=== PATIENT | male | born 1950 | race Caucasian/White ===

== ENCOUNTER 2024-10-01 10:23 | Outpatient (AMB) | payer MEDICARE, SELFPAY ==
--- NOTE | 2024-10-01 10:24 | A.OFFVIS_ITS ---
Vital Signs 10/01/24 10:32 Weight 274 lb BP 141/78 H Blood Pressure Location Rt brachial Position Sitting Pulse 84 Pulse Source Pulse Oximeter Pulse Oximetry (%) 97 Oxygen Delivery Method Room Air Intake Visit Reasons: Cough/Shortness of Breath Allergies No Known Allergies Allergy (Verified 10/01/24 10:33) Medication List - Last Reconciled 10/01/24 by Darshana Hernandez, SALES SERVICE MANAGER amlodipine 10 mg PO DAILY aspirin 81 mg PO DAILY doxazosin 4 mg PO DAILY losartan-hydrochlorothiazide 100-25 mg 1 tab PO DAILY HPI HPI Cough/Shortness of Breath: Details: Chu is a pleasant 74 year old male, never smoker, with underlying HTN, adenocarcinoma of prostate s/p prostatectomy 2005, and 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 He was referred by PCP for pulmonary evaluation. He reports persistent productive cough with associated dyspnea and wheezing that started in June, after ritika Influenza A. Symptoms persisted and was treated in August with azithromycin and prednisone on 08/11. He reports complete resolution in cough since then however dyspnea continues with moderate exertion. He was given an albuterol MDI which he has used infrequently as he does not benefit from use. He denies h/o recurrent respiratory infections. He denies h/o asthma/COPD. He reports history of second hand smoke exposure and has been heating his house with wood for 40+ years. 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 Of note, he also reports witnessed apneas and daytime fatigue, no h/o COLBY. Denies prior sleep study. He reports significant family history of CAD and reports sister, smoker, with h/o COPD. He recently had echo performed at [facility], records not available today. He does report h/o BLE edema, trialed lasix for 5 days with minimal improvement. He denies evaluation from cardiology. Patient also underwent chest CT in August 2024 which revealed calcifications of coronary arteries as well as 3 mm pulmonary nodule of LLL. Review of Systems Const Denies chills, Denies excessive sweating, Denies fever(s), Denies headache(s) and Denies night sweats Eyes Denies dry eyes, Denies irritation and Denies itchy eyes ENT Reports Normal hearing present, Denies headache(s), Denies nasal congestion, Denies nasal discharge, Denies post nasal drip and Denies sore throat Card Denies chest pain, Denies chest pain at rest, Denies chest pain with activity, Denies claudication, Reports dyspnea on exertion, Denies orthopnea and Reports p aroxysmal nocturnal dyspnea Resp Denies change in phlegm color, Denies chest congestion, Denies cough, Denies hemoptysis, Denies excessive phlegm production, Denies pain on inspiration, Denies pain with cough, Reports dyspnea on exertion, Denies stridor and Denies wheezing Musc Denies myalgias Neuro Reports Normal hearing present and Denies headache(s) Endo Denies excessive sweating Mandeep/Lymph Denies lymphadenopathy Aller/Immun Denies itchy eyes, Denies seasonal rhinorrhea and Denies wheezing Physical Exam Vital Signs: Last Vital Signs Pulse 84 10/01/24 10:32 BP 141/78 H 10/01/24 10:32 Pulse Ox 97 10/01/24 10:32 Oxygen Delivery Method Room Air 10/01/24 10:32 Const General: cooperative, healthy appearing, comfortable, no acute distress, well developed and alert Nutritional Appearance: obese Orientation/consciousness: patient oriented x3 Limitations: no limitations HEENT Head: Yes normal to inspection, Yes normocephalic and Yes atraumatic Ears: hearing grossly normal bilaterally and external ears normal Eyes General: appearance normal, both eyes and all related structures Eyelids: Yes eyelids normal Sclerae: sclerae normal EOM: EOMs intact bilaterally Neck Neck: Yes normal visual inspection and Yes no lymphadenopathy Lymphatic: no lymphadenopathy noted Chest Chest palpation & inspection: normal inspection of the chest Resp Effort & Inspection: normal respiratory effort, able to speak in complete sentences, no audible wheezes, no cough, no stridor, not tachypneic, no tripod positioning and no use of accessory muscles Auscultation: clear to auscultation bilaterally Cardio Jugular venous distension: no JVD Rate: regular rate Rhythm: regular rhythm Skin Other: warm, dry General skin exam: no rashes or lesions noted Neuro General: patient oriented x3 Cranial nerves: Yes Normal hearing present Cognition (Neuro): normal cognition Gait exam (Neuro): Normal gait present Extrem Other: 1+ pitting edema BLE Psych Appearance: grossly normal and well kempt Speech and movement: Normal speech and movement present and Clear speech present Affect: normal affect Attitude: cooperative Thought process: Normal thought process present Thought content: Normal thought content present Insight: Good insight present (Psych) Judgement: Good judgement present (Psych) Assessment & Plan Assessment & Plan (1) Dyspnea on exertion: Code(s): R06.09 - Other forms of dyspnea Category: Medical (2) Witnessed episode of apnea: Code(s): R06.81 - Apnea, not elsewhere classified Category: Medical (3) Pulmonary nodule: Code(s): R91.1 - Solitary pulmonary nodule Category: Medical Plan Cuh's symptoms may be multifactorial with pulmonary and cardiac contribution. Will send for PFT to assess. Will attempt to obtain echo from [facility] to assess for diastolic dysfunction. Patient reports symptoms suggestive of COLBY, will send for home sleep study. Patient with Chest CT which revealed 3mm pulmonary nodule of LLL, will repeat in one year to assess stability. All questions were answered and patient is in agreement of plan. Will follow up to review results or sooner if needed. Orders: Orders PFT pulmonary function test Today R06.09 - Other forms of dyspnea RT home sleep study Today R06.81 - Apnea, not elsewhere classified, R40.0 - Somnolence CT chest wo IV con 11 Months R91.1 - Solitary pulmonary nodule Coding Level of Care Code New Pt Level 4 (47753) Diagnoses Dyspnea on exertion R06.09 Witnessed episode of apnea R06.81 Pulmonary nodule R91.1
[2024-10-01 10:32] VITALS: BP 141/78; PULSE 84; O2SAT 97
--- OUTSIDE RECORDS SUMMARY | 2024-10-01 12:09 | XMS_ITS | Encounter Summary ---
Author Organization [facility] Address [address] [facility] [address] [place] [address] Phone Care Team Providers Care Administrative Aide Name Role Phone Erlin Monk MD Primary Care Provider [phone] Encounter Details Date Type Department Care Team (Late st Contact Info) Description 06/22/2023 Procedure Pass OR Admitting Dept - Virtual Department [address] [place] [address] Social History Tobacco Use Types Packs/Day Years Used Date Smoking Tobacco: Never Smokeless Tobacco: Never Alcohol Use Standard Drinks/Week Comments Yes 0 (1 standard drink = 0.6 oz pur e alcohol) Education Answer Date Recorded Are you interested in more education? Not on angélica e 04/17/2023 Are you concerned about learning? Not on file 04/17/2023 No 04/17/2023 No 04/17/2023 Digital Access Answer Date Recorded No 04/17/2023 No 04/17/2023 Reliable internet access at home? Not on file 04/17/2023 Device with a working camera? Not on file Sex and Gender Information Value Date Recorded Sex Assigned at Not on file Gender Identity Not on file Sexual Orientation Not on file documented as of this encounter Plan of Treatment Not on file documented as of this encounter Visit Diagnoses Not on filedocumented in this encounter Care Teams Administrative Aide Relationship Specialty Start Date End Date Erlin Monk MD [address] [facility] [address] [place] [address] PCP - General Internal Medicine 04/17/23 documented as of this encounter Additional Source Comments The information contained in this document represents components of the legal health record. It is not the complete legal health record.[facility]
--- OUTSIDE RECORDS SUMMARY | 2024-10-01 12:09 | XMS_ITS | Clinical Summary ---
Author Organization [facility] Address [address] [place] [address] Phone Care Team Providers Care Skiving Machine Operator Name Role Phone Erlin Monk MD Primary Care Provider [phone] Allergies No known active allergies Medications Medication Sig Dispensed Refills Start Date End Date Status amLODIPine (NORVASC) 10 MG tablet 02/03/2023 Active doxazosin (CARDURA) 4 MG tablet Take 1 tablet by mouth every morning. 02/03/2023 Active losartan-hydroCHLOROthi azide (HYZAAR) 100-25 mg per tablet Take 1 tablet by mouth every morning. 03/04/2023 Active aspirin 81 mg chewable tablet Take 81 mg by mouth daily. Active omega 3-zbb-gtc-fish oil 1,000 mg (120 mg-180 mg) Cap Take 1 capsule by mouth daily. Active therapeutic multivitamin tablet Take 1 tablet by mouth daily. Active cholecalciferol (VITAMIN D3) 25 MCG (1,000 unit) tablet Take 1,000 Units by mouth daily. Active Active Problems Problem Noted Date Diagnosed Date Squamous cell carcinoma of nose 04/23/2023 Aspirin long-term use 04/23/2023 Family History Relation Status Comments Father Mother Social History Tobacco Use Types Packs/Day Years Used Date Smoking Tobacco: Never Smokeless Tobacco: Never Tobacco Cessation:Counseling Given: Not Answered Alcohol Use Standard Drinks/Week Comments Yes 0 [...] on file Sexual Orientation Not on file Last Filed Vital Signs Vital Sign Reading Time Taken Comments Blood Pressure 143/92 06/22/2023 10:36 AM EST Pulse 72 06/22/2023 10:36 AM EST Temperature - - Respiratory Rate - - Oxygen Saturation 97% 06/22/2023 10:36 AM EST Inhaled Oxygen Concentration - - Weight 121.1 kg (267 lb) 04/23/2023 9:45 AM EDT Height 175.3 cm (5' 9 ) 04/23/2023 9:45 AM EDT Body Mass Index 39.43 04/23/2023 9:45 AM EDT Plan of Treatment Health Maintenance Due Date Last Done Comments Adult Td,Tdap Booster 1950 CREATININE LEVEL 1950 LIPID PANEL 1950 POTASSIUM LEVEL 1950 DEPRESSION SCREENING 1962 HEPATITIS B SCREENING 1968 HEPATITIS C SCREENING 1968 COLOGUARD 1995 COLONOSCOPY 1995 COLORECTAL CANCER SCREENING 1995 FIT TEST 1995 FOBT 1995 SIGMOIDOSCOPY 1995 VIRTUAL COLONOSCOPY 1995 PNEUMOCOCCAL VACCINES (50+ years) (1 of 1 - PCV) 2000 INFLUENZA VACCINE (#1) 2024 3, 03/29/2020 COVID-19 VACCINE (3 - 2023-2 5 season) 2024 10/04/2020, 09/13/2020 RSV VACCINE (1 - 1-dose 75+ series) 2025 ZOSTER VACCINES Completed 10/24/2020, 08/24/2020 SMOKING STATUS SCREENING (On ce After 26 Yrs) Completed 04/23/2023 HEPATITIS A VACCINES Aged Out No long er eligible based on patient's age to complete this topic HEPATITIS B VACCINES Aged Out No long er eligible based on patient's age to complete this topic HIB VACCINES Aged Out No longer eligi ble based on patient's age to complete this topic MENINGOCOCCAL VACCINES (ACWY) Aged Out No longer eligible based on patient's age to complete this topic Medical Devices Not on file Care Teams Skiving Machine Operator Relationship Specialty Start Date End Date Erlin Monk MD [address] [facility] [address] [place] [address] PCP - General Internal Medicine 04/17/23 Additional Source Comments The information contained in this document represents components of the legal health record. It is not the complete legal health record.[facility]
--- OUTSIDE RECORDS SUMMARY | 2024-10-01 12:09 | XMS_ITS | Encounter Summary ---
Author Organization [facility] Address [address] [employer] [facility] [address] [place] [address] Phone Care Team Providers Care Roll Or Tape Edge Machine Operator Name Role Phone Erlin Monk MD Primary Care Provider [phone] Encounter Details Date Type Department Care Team (Late st Contact Info) Description 08/03/2023 Procedure Pass OR Admitting Dept - Virtual Department [address] [place] [address] Social History Tobacco Use Types Packs/Day Years [...] on filedocumented in this encounter Care Teams Roll Or Tape Edge Machine Operator Relationship Specialty Start Date End Date Erlin Monk MD [address] [facility] [address] [place] [address] PCP - General Internal Medicine 04/17/23 documented as of this encounter Additional Source Comments The information contained in this document represents components of the legal health record. It is not the complete legal health record.[facility]
--- OUTSIDE RECORDS SUMMARY | 2024-10-01 12:09 | XMS_ITS | Clinical Summary ---
Author Organization [address] [facility] Address [address] [place] [address] Phone Care Team Providers Care Assistant Distribution Manager Name Role Phone Bayron Fulton Primary Care Provider [phone] Encounters Date Type Department Care Team Description 09/03/2024 7:30 AM EST Ancillary Procedure [facility] [address] [facility] [address] [place] [address] SOB (shortness of breath) from Last 3 Months Social History Tobacco Use Types Packs/Day Years Used Date Smoking Tobacco: Never Assessed Sex and Gender Information Value Date Recorded Sex Assigned at Not on file Legal Sex Male 9:05 AM EST Gender Identity Not on file Sexual Orientation Not on file Last Filed Vital Signs Vital Sign Reading Time Taken Comments Blood Pressure 144/72 09/03/2024 8:12 AM EST Pulse - - Temperature - - Respiratory Rate - - Oxygen Saturation - - Inhaled Oxygen Concentration - - Weight 126 kg (277 lb) 09/03/2024 8:12 AM EST Height 177.8 cm (5' 10 ) 09/03/2024 8:12 AM EST Body Mass Index 39.75 09/03/2024 8:12 AM EST Plan of Treatment Health Maintenance Due Date Last Done Comments DTaP,Tdap,and Td Vaccines (1 - Tdap) 1969 Pneumococcal Vaccine: 50+ Ye ars (1 of 1 - PCV) 2000 Zoster Vaccines (1 of 2) 2000 COVID-19 Vaccine (2023-2 5 season) 2024 Influenza Vaccine (#1) 2024 Abdominal Aortic Aneurysm (A AA) Screen 09/02/2024 Cholesterol Screening (Lipid Panel) 09/02/2024 Colorectal Cancer Screening: Colonoscopy 09/02/2024 Depression Screening 09/02/2024 Falls Risk Assessment 09/02/2024 Hepatitis C Screening 09/02/2024 Medicare Annual Wellness Visit 09/02/2024 Social Influencers of Health Screening 09/02/2024 RSV Immunization Adult Patie nts (1 - 1-dose 75+ series) 2025 HIB Vaccines Aged Out No longer eligi ble based on patient's age to complete this topic HPV Vaccines Aged Out No longer eligi ble based on patient's age to complete this topic Hepatitis A Vaccines Aged Out No long er eligible based on patient's age to complete this topic Hepatitis B Vaccines Aged Out No long er eligible based on patient's age to complete this topic IPV Vaccines Aged Out No longer eligi ble based on patient's age to complete this topic MMR Vaccines Aged Out No longer eligi ble based on patient's age to complete this topic Meningococcal ACWY Vaccine Aged Out N o longer eligible based on patient's age to complete this topic Meningococcal B Vacine Aged Out No lo nger eligible based on patient's age to complete this topic RSV Immunization Patients Un vangie 20 months Aged Out No longer eligible b ased on patient's age to complete this topic Varicella Vaccines Aged Out No longer eligible based on patient's age to complete this topic Procedures Procedure Name Priority Date/Time Associated Diagnosis Comments TRANSTHORACIC ECHOCARDIOGRAM (TTE) COMPLETE STAT 09/03/2024 8:12 AM EST SOB (shortness of breath) from Last 3 Months Results * (ABNORMAL) TRANSTHORACIC ECHOCARDIOGRAM (TTE) COMPLETE (09/03/2024 8:12 AM EST) Left Atrium Minor Harwick 6.8 cm CV PACS Left Atrium Major Harwick 5.9 cm CV PACS LA Area Sys (A2C) 29 cm2 CV PACS LA Area Sys (A4C) 23 cm2 CV PACS LA Volume (BP) 92 mL CV PACS RA Area 13.8 cm2 CV PACS RA 2D Volume 27 mL CV PACS Aortic Sinus Valsalva 4.8 cm CV PACS Ascending Aorta 3.9 cm CV PACS IVSD 1.2(A) 0.6 - 1.0 cm CV PACS LVIDD 4.7 4.2 - 5.8 cm CV PACS LVIDS 3.3 2.5 - 4.0 cm CV PACS LVOT Diameter 2.5 cm CV PACS LVOT Mean Jarett 0.8 m/s CV PACS LVOT Mean Grad 2 mmHg CV PACS LVOT Peak VTI 25.1 cm CV PACS LVOT Peak Jarett 1.3 m/s CV PACS LVOT Peak Gradient 7 mmHg CV PACS LVPWD 1.2(A) 0.6 - 1.0 cm CV PACS MV E' Tissue Velocity Lateral 5 cm/s CV PACS MV E' Tissue Velocity Septal 5 cm/s CV PACS LVOT Area 4.9 cm2 CV PACS LVOT Stroke Volume 123 mL CV PACS MV Deceleration Ringgold 3.2 m/s2 CV PACS E Wave Deceleration Time 232 119 - 242 ms CV PACS MV PHT 67 ms CV PACS MV Peak A Jarett 1.00 m/s CV PACS MV Peak E Jarett 0.80 m/s CV PACS MV Area PHT 3.2 cm2 CV PACS PV Acceleration Time 85 ms CV PACS RV Diastolic Basal Dimension 4.9(A) 2.5 - 4.1 cm CV PACS TAPSE 29 mm CV PACS E/E' Ratio Septal 16 CV PACS E/E' Ratio Averaged 16 CV PACS Relative Wall Thickness ratio 0.49(A) 0.24 - 0.42 CV PACS FS 30 % CV PACS LV Mass 2D 207(A) 96 - 200 g CV PACS LVOT flow 393 mL/s CV PACS E/A Ratio 0.8 0.8 - 2.0 CV PACS E/E' Ratio Lateral 16 CV PACS BSA 2.49 m2 CV PACS LA Volume Index (BP) 36 mL/m2 CV PACS LVIDD Index 1.96 cm/m2 CV PACS LVIDS Index 1.38 cm/m2 CV PACS LV Mass Index 2D 88 50 - 102 g/m2 CV PACS LVOT Stroke Index 0 mL/m2 CV PACS RA 2D Volume Index 11(A) 18 - 32 mL/m2 CV PACS Ascending Aorta Index 1.63 cm/m2 CV PACS RA Major Harwick 5.8 cm CV PACS RA Major Harwick Index 2.4 2.1 - 2.7 cm/m2 CV PACS AV Velocity Ratio 0.82 CV PACS Ao VTI 28.7 cm CV PACS AV Mean Gradient 6 mmHg CV PACS AV Peak Gradient 10 mmHg CV PACS LVOT:AV VTI Index 0.88 CV PACS AV Area 2D 4.0 cm2 CV PACS DELFINO Index (2D) 1.67 cm2/m2 CV PACS AV Area Continuity Equation 4.3 cm2 CV PACS DELFINO Index (VTI) 1.79 cm2/m2 CV PACS AV Area Index 1.6 CV PACS Est. RA Pressure 3 mmHg CV PACS Anatomical Region Laterality Modality Ultrasound Narrative 09/03/2024 2:59 PM EST ?Left ventricle cavity size is normal. ??There is mild, concentric left ventricular hypertrophy. ??There is normal left ventricular regional wall motion. ??Left ventricular systolic function is in the normal range with an ejection fraction of 55-60%. ?There is normal right ventricular size and systolic function. ?There is no hemodynamically significant valve disease noted. ??Minor valvular abnormalities as below. ?The Sinus of Valsalva is dilated (4.8 cm). The ascending aorta is mildly dilated (3.9 cm). ?There is mild left atrial enlargement. Normal biventricular systolic function. ??Dilated aortic root and ascending aorta as above. ??There are no prior echocardiograms in our system for comparison. ??Of note, patient was having frequent isolated PVCs throughout the study. Left Ventricle Left ventricle cavity size is normal. There is mild hypertrophy. Systolic function is normal with an ejection fraction of 55-60%. There are no regional LV wall motion abnormalities. Indeterminate diastolic function due to more than mild mitral annular calcification. Left atrial pressure is inconclusive. Right Ventricle Right ventricle cavity appears normal. Normal TAPSE (> 17 mm). Left Atrium Left atrium cavity is mildly dilated. Right Atrium Right atrium cavity is normal. IVC/SVC RA pressures is estimated to be 3 mmHg (IVC diameter <21 mm and decreases >50% during inspiration). Mitral Valve The leaflets are mildly thickened and exhibit normal excursion. There is moderate annular calcification. There is no regurgitation or stenosis. Tricuspid Valve The leaflets exhibit normal excursion. There is no regurgitation or stenosis. Cannot assess RVSP. Aortic Valve The aortic valve is trileaflet. The leaflets are mildly thickened. There is mild regurgitation. There is no evidence of aortic valve stenosis. Pulmonic Valve The pulmonic valve was not well visualized. There is no regurgitation or stenosis. Ascending Aorta The Sinus of Valsalva is dilated (4.8 cm). The ascending aorta is mildly dilated (3.9 cm). Pericardium There is an anterior epicardial fat pad noted. Study Details Overall the study quality was adequate. Bayron AGUILAR CV ECHO PROCEDURES Final Resu lt from Last 3 Months Insurance [facility] MEDICARE Care Teams Assistant Distribution Manager Relationship Specialty Start Date End Date Bayron Fulton PA [address] [place] [phone] PCP - General Physician Server Software Engineer 09/02/24
== END 2024-10-01 11:00 | disposition home or self-care (01) ==
LOC: HO.HPSW 10:24
PROVIDERS: PCP Physician Assistant Medical; Referring Provider Physician Assistant Medical; Visit Provider Nurse Practitioner Family
DX: R06.09 Other forms of dyspnea (principal); R06.81 Apnea, not elsewhere classified; R91.1 Solitary pulmonary nodule
CPT/HCPCS: 99204

== ENCOUNTER → 2024-10-01 10:23 | Outpatient (BNVA) | payer MEDICARE, SELFPAY | PROVIDERS: PCP Physician Assistant Medical; Referring Provider Physician Assistant Medical; Visit Provider Nurse Practitioner Family | DX: R06.09 Other forms of dyspnea (principal); R06.81 Apnea, not elsewhere classified; R91.1 Solitary pulmonary nodule; R40.0 Somnolence; Z90.79 Acquired absence of other genital organ(s) | CPT/HCPCS: 99202 ==

== ENCOUNTER 2024-11-13 08:30 | Outpatient (REF) | payer MEDICARE, SELFPAY ==
--- OUTSIDE RECORDS SUMMARY | 2024-11-13 08:51 | XMS_ITS | Clinical Summary ---
Author Organization [facility] Address [address] [place] [address] Phone Care Team Providers Care Lunchroom Worker Name Role Phone Erlin Monk MD Primary Care Provider [phone] Allergies No known active allergies Medications amLODIPine (NORVASC) 10 MG tablet 3 Active doxazosin (CARDURA) 4 MG tablet Take 1 tablet by mouth every morning. 3 Active losartan-hydroCHL OROthiazide (HYZAAR) 100-25 mg per tablet Take 1 tablet by mouth every morning. 3 Active aspirin 81 mg chewable tablet Take 81 mg by mouth daily. Active omega 2-ysp-zaa-fish oil 1,000 mg (120 mg-180 mg) Cap [...] at Not on file Legal Sex Male 2:48 PM EDT Gender Identity Not on file Sexual Orientation [...] - PCV) 2000 INFLUENZA VACCINE (#1) 2024 , 03/29/2020 COVID-19 VACCINE (3 - 2023-2 5 [...] this topic Medical Devices Not on file Insurance MEDICARE PART A & B MEDICARE SUPPLEMENT MEDICARE PART A & B MEDICARE SUPPLEMENT MEDICARE PART A & B [facility] MEDICARE SUPPLEMENT MEDICARE PART A & B [facility] MEDICARE SUPPLEMENT MEDICARE PART A & B [facility] MEDICARE SUPPLEMENT MEDICARE PART A & B [facility] MEDICARE SUPPLEMENT Care Teams Lunchroom Worker Relationship Specialty Start Date End Date Erlin Monk MD [address] [facility] [address] [place] [address] PCP - General Internal Medicine 04/17/23 Additional Source Comments The information contained in this document represents components of the legal health record. It is not the complete legal health record.[facility]
--- OUTSIDE RECORDS SUMMARY | 2024-11-13 08:51 | XMS_ITS | Encounter Summary ---
Author Organization [facility] Address [address] [facility] [address] [place] [address] Phone Care Team Providers Care Photoengraving Etcher Apprentice Name Role Phone Erlin Monk MD Primary Care Provider [phone] Encounter Details Date Type Department Care Team (Late st Contact Info) Description 08/03/2023 Procedure Pass OR Admitting Dept - Virtual Department [address] [place] [address] Social History Tobacco Use Types Packs/Day Years [...] on filedocumented in this encounter Care Teams Photoengraving Etcher Apprentice Relationship Specialty Start Date End Date Erlin Monk MD [address] [facility] [address] [place] [address] PCP - General Internal Medicine 04/17/23 documented as of this encounter Additional Source Comments The information contained in this document represents components of the legal health record. It is not the complete legal health record.[facility]
--- OUTSIDE RECORDS SUMMARY | 2024-11-13 08:51 | XMS_ITS | Encounter Summary ---
Author Organization [facility] Address [address] [employer] [facility] [address] [place] [address] Phone Care Team Providers Care Carton Forming Machine Helper Name Role Phone Erlin Monk MD Primary Care Provider [phone] Encounter Details Date Type Department Care Team (Late st Contact Info) Description 06/22/2023 Procedure Pass OR Admitting Dept - Virtual Department [address] [place] [address] Social History Tobacco Use Types Packs/Day Years [...] on filedocumented in this encounter Care Teams Carton Forming Machine Helper Relationship Specialty Start Date End Date Erlin Monk MD [address] [facility] [address] [place] [address] PCP - General Internal Medicine 04/17/23 documented as of this encounter Additional Source Comments The information contained in this document represents components of the legal health record. It is not the complete legal health record.[facility]
--- NOTE | 2024-11-13 09:07 | PFT_ITS ---
Spirometry [] Lung Volumes [] Diffusion Capacity [] Methacholine Challenge [] Flow Volume Loops [] MVV [] MIP/MEP(Max inspiratory pressure/Max expiratory pressure) [] 6 Minute Walk Test [] ABG [] Interpretation [] MTDD
[2024-11-13 09:59] VITALS: PULSE 74; O2SAT 96
== END 2024-11-13 08:31 | disposition home or self-care (01) ==
LOC: HO.RESP 08:30
PROVIDERS: PCP Physician Assistant Medical; Visit Provider Nurse Practitioner Family
DX: R06.09 Other forms of dyspnea (principal)
CPT/HCPCS: 94010; 94640; 94727; 94729

== ENCOUNTER → 2024-11-13 09:07 | Outpatient (BNV) | payer MEDICARE, SELFPAY | PROVIDERS: PCP Physician Assistant Medical; Visit Provider Internal Medicine Pulmonary Disease | DX: R06.09 Other forms of dyspnea (principal) | CPT/HCPCS: 94060; 94727; 94729 ==

== ENCOUNTER → 2024-12-03 08:42 | Outpatient (REF) | payer MEDICARE, SELFPAY ==
--- OUTSIDE RECORDS SUMMARY | 2024-12-03 08:54 | XMS_ITS | Clinical Summary ---
Author Organization [address] [facility] Address [address] [place] [address] Phone Care Team Providers Care Vice President Business & Corporate Development Name Role Phone Bayron Fulton Primary Care Provider [phone] Encounters Date Type Department Care Team Description 09/03/2024 7:30 AM EST Ancillary Procedure [facility] [address] [facility] [address] [place] [address] SOB (shortness of breath) from [...] 2000 COVID-19 Vaccine (2023-2 5 season) 2024 Abdominal Aortic Aneurysm (A AA) Screen 09/02/2024 Cholesterol Screening (Lipid Panel) 09/02/2024 Colorectal Cancer Screening: Colonoscopy 09/02/2024 Depression Screening 09/02/2024 Falls Risk Assessment 09/02/2024 Hepatitis C Screening 09/02/2024 Medicare Annual Wellness Visit 09/02/2024 Social Influencers of Health Screening 09/02/2024 Influenza Vaccine (Season Ended) 2025 RSV Immunization Adult Patie nts (1 - [...] age to complete this topic Meningococcal B Vaccine Aged Out No l onger eligible based on patient's age to complete [...] (09/03/2024 8:12 AM EST) Left At[facility] Minor [place] 6.8 cm CV PACS Left [facility] Major [place] 5.9 cm CV PACS [place] Area Sys [...] Volume 123 mL CV PACS MV Deceleration [place] 3.2 m/s2 CV PACS E Wave Deceleration [...] Index 1.63 cm/m2 CV PACS RA Major [place] 5.8 cm CV PACS RA Major [place] Index 2.4 2.1 - 2.7 cm/m2 CV [...] Resu lt from Last [place] [id number] [facility] MEDICARE Care Teams Vice President Business & Corporate Development Relationship Specialty Start Date End Date Bayron Fulton PA PCP - General Physician Marine Geologist 09/02/24
== END ==
LOC: HO.SL 08:42
PROVIDERS: PCP Physician Assistant Medical; Visit Provider Nurse Practitioner Family
DX: G47.33 Obstructive sleep apnea (adult) (pediatric) (principal); R40.0 Somnolence
CPT/HCPCS: 95806

== ENCOUNTER → 2024-12-03 09:20 | Outpatient (BNV) | payer MEDICARE, SELFPAY | PROVIDERS: PCP Physician Assistant Medical; Visit Provider Internal Medicine | DX: G47.33 Obstructive sleep apnea (adult) (pediatric) (principal) | CPT/HCPCS: 95806 ==

== ENCOUNTER 2024-12-19 15:01 | Outpatient (AMB) | payer MEDICARE, SELFPAY ==
--- OUTSIDE RECORDS SUMMARY | 2024-12-19 15:03 | XMS_ITS | Clinical Summary ---
Author Organization [address] [place] [address] [place] [address] Phone Care Team Providers Care Psych Np Name Role Phone Bayron Fulton Primary Care Provider [phone] Social History Tobacco Use Types Packs/Day Years [...] Vaccines (1 of 2) 2000 COVID-19 Vaccine ( - 2023-2 5 season) 2024 Abdominal Aortic Aneurysm (A [...] on patient's age to complete this topic Insurance [facility] MEDICARE Care Teams Psych Np Relationship Specialty Start Date End Date Bayron Fulton PA PCP - General Physician Liner Machine Operator Helper 09/02/24
--- NOTE | 2024-12-19 15:24 | MHC.OFFVIS ---
Vital Signs 12/19/24 15:27 Height 5 ft 9.5 in Weight 278 lb 8 oz BMI 40.5 BP 176/90 H Blood Pressure Location Lt brachial Position Sitting Pulse 42 L Pulse Source Pulse Oximeter Pulse Oximetry (%) 96 Oxygen Delivery Method Room Air Intake Visit Reasons: dyspnea Allergies No Known Allergies Allergy (Verified 12/19/24 15:31) HPI HPI dyspnea: Details: Chu is a pleasant 74 year old male, never smoker, with underlying HTN, adenocarcinoma of prostate s/p prostatectomy 2005, and 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 Patient continues to report dyspnea on exertion and wheezing. Today he presents to review PFT and home sleep study. He denies any visits to urgent care or hopitalizations related to respiratory distress. [facility] Social History (Updated 12/19/24 @ 15:30 by Marisa Hobbs [facility]) Patient Tobacco Use Status: Never used Tobacco Review of Systems Const Denies chills, Denies excessive sweating, Denies fever(s), Denies headache(s) and Denies night sweats Eyes Denies dry eyes, Denies irritation and Denies itchy eyes ENT Reports Normal hearing present, Denies headache(s), Denies nasal congestion, Denies nasal discharge, Denies post nasal drip and Denies sore throat Card Denies chest pain, Denies chest pain at rest, Denies chest pain with activity, Denies claudication, Reports dyspnea on exertion, Denies orthopnea and Reports paroxysmal nocturnal dyspnea Resp Denies change in phlegm color, Denies chest congestion, Denies cough, Denies hemoptysis, Denies excessive phlegm production, Denies pain on inspiration, Denies pain with cough, Reports dyspnea on exertion and Denies stridor Musc Denies myalgias Neuro Reports Normal hearing present and Denies headache(s) Endo Denies excessive sweating Mandeep/Lymph Denies lymphadenopathy Aller/Immun Denies itchy eyes and Denies seasonal rhinorrhea Physical Exam Vital Signs: Last Vital Signs Pulse 42 L 12/19/24 15:27 BP 176/90 H 12/19/24 15:27 Pulse Ox 96 12/19/24 15:27 Oxygen Delivery Method Room Air 12/19/24 15:27 BMI result Body Mass Index 40.5 Const General: cooperative, healthy appearing, comfortable, no acute distress, well developed and alert Nutritional Appearance: obese Orientation/consciousness: patient oriented x3 Limitations: no limitations HEENT Head: Yes normal to inspection, Yes normocephalic and Yes atraumatic Ears: hearing grossly normal bilaterally and external ears normal Eyes General: appearance normal, both eyes and all related structures Eyelids: Yes eyelids normal Sclerae: sclerae normal EOM: EOMs intact bilaterally Neck Neck: Yes normal visual inspection and Yes no lymphadenopathy Lymphatic: no lymphadenopathy noted Chest Chest palpation & inspection: normal inspection of the chest Resp Effort & Inspection: normal respiratory effort, able to speak in complete sentences, no audible wheezes, no cough, no stridor, not tachypneic, no tripod positioning and no use of accessory muscles Auscultation: clear to auscultation bilaterally Cardio Jugular venous distension: no JVD Rate: regular rate Rhythm: regular rhythm Skin Other: warm, dry General skin exam: no rashes or lesions noted Neuro General: patient oriented x3 Cranial nerves: Yes Normal hearing present Cognition (Neuro): normal cognition Gait exam (Neuro): Normal gait present Extrem Other: 1+ pitting edema BLE Psych Appearance: grossly normal and well kempt Speech and movement: Normal speech and movement present and Clear speech present Affect: normal affect Attitude: cooperative Thought process: Normal thought process present Thought content: Normal thought content present Insight: Good insight present (Psych) Judgement: Good judgement present (Psych) Assessment & Plan Assessment & Plan (1) Asthma: Code(s): J45.909 - Unspecified asthma, uncomplicated Category: Medical (2) Pulmonary nodule: Code(s): R91.1 - Solitary pulmonary nodule Category: Medical (3) Moderate obstructive sleep apnea: Code(s): G47.33 - Obstructive sleep apnea (adult) (pediatric) Category: Medical Plan Reviewed here to with revealed mild obstructive defect, response to bronchodilators and a small to medium airways. Lung volumes and DLCO normal, suggestive of asthma. Will start Breo. Discussed importance of good oral hygiene to prevent thrush. Reviewed sleep study which revealed moderately severe obstructive sleep apnea, with minimal nocturnal hypoxemia. He is interested in CPAP therapy however would like to hold off at this time. Will notify office if he would like to proceed. Discussed adverse effects of untreated COLBY. Patient with Chest CT 08/2024 which revealed 3mm pulmonary nodule of LLL, will repeat in one year to assess stability. All questions were answered and patient is in agreement of plan. Will follow up in 6-8 weeks or sooner if needed. Medications: New fluticasone furoate-vilanterol 100-25 mcg/dose (Breo Ellipta) 1 inh inhalation DAILY 60 ea 6RF Coding Level of Care Code Est Pt Level 4 (61624) Diagnoses Asthma J45.909 Pulmonary nodule R91.1 Moderate obstructive sleep apnea G47.33
[2024-12-19 15:27] VITALS: BP 176/90; PULSE 42; O2SAT 96; BMI 40.5
== END 2024-12-19 16:23 | disposition home or self-care (01) ==
LOC: HO.HPSW 15:01
PROVIDERS: PCP Physician Assistant Medical; Visit Provider Nurse Practitioner Family
DX: J45.909 Unspecified asthma, uncomplicated (principal); R91.1 Solitary pulmonary nodule; G47.33 Obstructive sleep apnea (adult) (pediatric)
CPT/HCPCS: 99214

== ENCOUNTER → 2024-12-19 15:01 | Outpatient (BNVA) | payer MEDICARE, SELFPAY | PROVIDERS: PCP Physician Assistant Medical; Visit Provider Nurse Practitioner Family | DX: J45.909 Unspecified asthma, uncomplicated (principal); R91.1 Solitary pulmonary nodule; G47.33 Obstructive sleep apnea (adult) (pediatric) | CPT/HCPCS: 99212 ==

== ENCOUNTER 2025-02-13 14:51 | Outpatient (AMB) | payer MEDICARE, SELFPAY ==
--- OUTSIDE RECORDS SUMMARY | 2025-02-13 14:53 | XMS_ITS | Clinical Summary ---
Author Organization [address] [place] [address] [place] [phone] Phone Care Team Providers Care Geothermal Technician Name Role Phone Bayron Fulton Primary Care Provider [phone] Social History Tobacco Use Types Packs/Day Years [...] Vaccine ( - 2023-2 5 season) 2024 Depression Screening 07/02/2024 Abdominal Aortic Aneurysm (A AA) Screen 09/02/2024 Cholesterol Screening (Lipid Panel) 09/02/2024 Colorectal Cancer Screening: Colonoscopy 09/02/2024 Falls Risk Assessment 09/02/2024 Hepatitis C Screening 09/02/2024 Medicare Annual Wellness Visit 09/02/2024 Social Influencers of Health Screening 09/02/2024 Influenza Vaccine (#1) 2025 RSV Immunization Adult Patie nts (1 [...] patient's age to complete this topic Insurance [facility] MEDICARE Care Teams Geothermal Technician Relationship Specialty Start Date End Date Bayron Fulton PA PCP - General Physician Para Machine Operator 09/02/24
--- OUTSIDE RECORDS SUMMARY | 2025-02-13 14:53 | XMS_ITS | Encounter Summary ---
Author Organization [facility] Address [address] [facility] [address] [place] [address] Phone Care Team Providers Care Energy Sales Consultant Name Role Phone Erlin Monk MD Primary Care Provider [phone] Encounter Details Date Type Department Care Team (Late st Contact Info) Description 06/22/2023 Procedure Pass OR Admitting Dept - Virtual Department [address] [place] [address] Social History Tobacco Use Types Packs/Day Years [...] on filedocumented in this encounter Care Teams Energy Sales Consultant Relationship Specialty Start Date End Date Erlin Monk MD [address] [place] [address] [address] [place] [address] PCP - General Internal Medicine 04/17/23 documented as of this encounter Additional Source Comments The information contained in this document represents components of the legal health record. It is not the complete legal health record.[facility]
[2025-02-13 15:00] VITALS: BP 168/72; PULSE 72; O2SAT 97; BMI 40.8
--- NOTE | 2025-02-13 15:00 | A.OFFVIS_ITS ---
Vital Signs 02/13/25 15:00 Height 5 ft 9.5 in Weight 280 lb 6 oz BMI 40.8 BP 168/72 H Blood Pressure Location Rt brachial Position Sitting Pulse 72 Pulse Source Pulse Oximeter Pulse Oximetry (%) 97 Oxygen Delivery Method Room Air Intake Visit Reasons: dyspnea Allergies No Known Allergies Allergy (Verified 02/13/25 15:03) HPI HPI dyspnea: Details: Chu is a pleasant 74 year old male, never smoker, with underlying COLBY, asthma, HTN, adenocarcinoma of prostate s/p prostatectomy 2005, and 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 At the last visit, patient was started on Breo for ongoing dyspnea on exertion and wheezing with notable improvements. He was also started on CPAP therapy in APAP mode pressures 6-20 cmH2O for moderate COLBY, AHI 21 with moderate nocturnal hypoxemia. He reports benefit from use with improvement in nonrestorative sleep as well as daytime fatigue and presents today to review compliance report. [facility]. He denies any visits to urgent care or hopitalizations related to respiratory distress. [facility] Social History Patient Tobacco Use Status: Never used Tobacco Review of Systems Const Denies chills, Denies excessive sweating, Denies fever(s), Denies headache(s) and Denies night sweats Eyes Denies dry eyes, Denies irritation and Denies itchy eyes ENT Reports Normal hearing present, Denies headache(s), Denies nasal congestion, Denies nasal discharge, Denies post nasal drip and Denies sore throat Card Denies chest pain, Denies chest pain at rest, Denies chest pain with activity, Denies claudication, Denies orthopnea and Reports paroxysmal nocturnal dyspnea Resp Denies change in phlegm color, Denies chest congestion, Denies cough, Denies hemoptysis, Denies excessive phlegm production, Denies pain on inspiration, Denies pain with cough and Denies stridor Musc Denies myalgias Neuro Reports Normal hearing present and Denies headache(s) Endo Denies excessive sweating Mandeep/Lymph Denies lymphadenopathy Aller/Immun Denies itchy eyes and Denies seasonal rhinorrhea Physical Exam Vital Signs: Last Vital Signs Pulse 72 02/13/25 15:00 BP 168/72 H 02/13/25 15:00 Pulse Ox 97 02/13/25 15:00 Oxygen Delivery Method Room Air 02/13/25 15:00 BMI result Body Mass Index 40.8 Const General: cooperative, healthy appearing, comfortable, no acute distress, well developed and alert Nutritional Appearance: obese Orientation/consciousness: patient oriented x3 Limitations: no limitations HEENT Head: Yes normal to inspection, Yes normocephalic and Yes atraumatic Ears: hearing grossly normal bilaterally and external ears normal Eyes General: appearance normal, both eyes and all related structures Eyelids: Yes eyelids normal Sclerae: sclerae normal EOM: EOMs intact bilaterally Neck Neck: Yes normal visual inspection and Yes no lymphadenopathy Lymphatic: no lymphadenopathy noted Chest Chest palpation & inspection: normal inspection of the chest Resp Effort & Inspection: normal respiratory effort, able to speak in complete sentences, no audible wheezes, no cough, no stridor, not tachypneic, no tripod positioning and no use of accessory muscles Auscultation: clear to auscultation bilaterally Cardio Jugular venous distension: no JVD Rate: regular rate Heart sounds: Abnormal heart opening sounds Skin Other: warm, dry General skin exam: no rashes or lesions noted Neuro General: patient oriented x3 Cranial nerves: Yes Normal hearing present Cognition (Neuro): normal cognition Gait exam (Neuro): Normal gait present Extrem Other: 1+ pitting edema BLE Psych Appearance: grossly normal and well kempt Speech and movement: Normal speech and movement present and Clear speech present Affect: normal affect Attitude: cooperative Thought process: Normal thought process present Thought content: Normal thought content present Insight: Good insight present (Psych) Judgement: Good judgement present (Psych) Assessment & Plan Assessment & Plan (1) Asthma: Code(s): J45.909 - Unspecified asthma, uncomplicated Category: Medical (2) Pulmonary nodule: Code(s): R91.1 - Solitary pulmonary nodule Category: Medical (3) Moderate obstructive sleep apnea: Code(s): G47.33 - Obstructive sleep apnea (adult) (pediatric) Category: Medical Plan Reviewed compliance report which revealed >4 hours of use 100% of the time, averaging 6+ hours, with minimal leaking and average AHI 3.3. Patient has been benefitting from use and is motivated to continue. Prior Chest CT 08/2024 which revealed 3mm pulmonary nodule of LLL, order placed to repeat in one year to assess stability. Of note, on examination patient with abnormal heart rhythm, denies palpitations, chest pain, or dizziness. Endorses issues with blood pressure control however monitors at home with reportedly improved readings and recently started on CPAP therapy after years of uncontrolled COLBY. Encouraged patient to monitor BP while at home if persistently elevated call PCP. Denies prior cardiac evaluation, will send for EKG. Discussed signs and symptoms that would warrant emergent evaluation. All questions were answered and patient is in agreement of plan. Will follow up in 6-8 weeks or sooner if needed. Orders: Orders ECG 12 lead EKG 02/16/25 I49.9 - Cardiac arrhythmia, unspecified Coding Level of Care Code Est Pt Level 4 (42077) Diagnoses Asthma J45.909 Pulmonary nodule R91.1 Moderate obstructive sleep apnea G47.33
== END 2025-02-13 15:53 | disposition home or self-care (01) ==
LOC: HO.HPSW 14:51
PROVIDERS: PCP Physician Assistant Medical; Visit Provider Nurse Practitioner Family
DX: J45.909 Unspecified asthma, uncomplicated (principal); R91.1 Solitary pulmonary nodule; G47.33 Obstructive sleep apnea (adult) (pediatric)
CPT/HCPCS: 99214

== ENCOUNTER → 2025-02-13 14:51 | Outpatient (BNVA) | payer MEDICARE, SELFPAY | PROVIDERS: PCP Physician Assistant Medical; Visit Provider Nurse Practitioner Family | DX: R91.1 Solitary pulmonary nodule (principal); J45.909 Unspecified asthma, uncomplicated; G47.33 Obstructive sleep apnea (adult) (pediatric) | CPT/HCPCS: 99212 ==

== ENCOUNTER → 2025-02-16 09:01 | Outpatient (REF) | payer MEDICARE, SELFPAY ==
--- NOTE | 2025-02-16 09:06 | ECG_ITS ---
Test Reason : CARDIAC ARRHYTHMIA Blood Pressure : */* mmHG Vent. Rate : 89 BPM Atrial Rate : 89 BPM P-R Int : 196 ms QRS Dur : 84 ms QT Int : 342 ms P-R-T Axes : 97 -26 89 degrees QTcB Int : 416 ms Sinus rhythm with frequent , and consecutive Premature ventricular complexes Minimal voltage criteria for LVH, may be normal variant ( R in aVL ) Nonspecific ST and T wave abnormality Abnormal ECG No previous ECGs available Referred By: Aletha Ritter Electronically Signed By: MEDINA MYOER MD
--- OUTSIDE RECORDS SUMMARY | 2025-02-16 09:33 | XMS_ITS | Clinical Summary ---
Author Organization [address] [place] [address] [place] [phone] Phone Care Team Providers Care Scenic Designer Name Role Phone Bayron Fulton Primary Care Provider [phone] Social History Tobacco Use Types Packs/Day Years [...] patient's age to complete this topic Insurance [facility] MEDICARE Care Teams Scenic Designer Relationship Specialty Start Date End Date Bayron Fulton PA PCP - General Physician Sponsorship Coordinator 09/02/24
--- OUTSIDE RECORDS SUMMARY | 2025-02-16 09:33 | XMS_ITS | Encounter Summary ---
Author Organization [facility] Address [address] [facility] [address] [place] [address] Phone Care Team Providers Care Hebrew Teacher Name Role Phone Erlin Monk MD Primary Care Provider [phone] Encounter Details Date Type Department Care Team (Late st Contact Info) Description 06/22/2023 Procedure Pass OR Admitting Dept - Virtual Department [address] [place] [address] Social History Tobacco Use Types Packs/Day Years [...] on filedocumented in this encounter Care Teams Hebrew Teacher Relationship Specialty Start Date End Date Erlin Monk MD [address] [place] [address] [address] [place] [address] PCP - General Internal Medicine 04/17/23 documented as of this encounter Additional Source Comments The information contained in this document represents components of the legal health record. It is not the complete legal health record.[facility]
== END ==
LOC: HO.CARD 09:01
PROVIDERS: PCP Physician Assistant Medical; Visit Provider Nurse Practitioner Family
DX: I49.9 Cardiac arrhythmia, unspecified (principal)
CPT/HCPCS: 93005

== ENCOUNTER → 2025-02-16 09:06 | Outpatient (BNV) | payer MEDICARE, SELFPAY | PROVIDERS: PCP Physician Assistant Medical; Visit Provider Internal Medicine Cardiovascular Disease | DX: I49.3 Ventricular premature depolarization (principal) | CPT/HCPCS: 93010 ==

== ENCOUNTER 2025-04-15 12:50 | Outpatient (AMB) | payer MEDICARE, SELFPAY ==
[2025-04-15 12:58] VITALS: BP 144/74; PULSE 66; O2SAT 97; BMI 40.3
--- NOTE | 2025-04-15 12:58 | A.OFFVIS_ITS ---
Vital Signs 04/15/25 12:58 Height 5 ft 9.5 in Weight 277 lb BMI 40.3 BP 144/74 H Blood Pressure Location Rt brachial Position Sitting Pulse 66 Pulse Oximetry (%) 97 Oxygen Delivery Method Room Air Intake Visit Reasons: dyspnea [facility] Assistant Required: No Credit Advisor: Credit Advisor offered & declined Accompanied by: Spouse Allergies No Known Allergies Allergy (Verified 04/15/25 13:01) Medication List - Last Reconciled 04/15/25 by Roma Tai LPN acetaminophen ER (Tylenol Arthritis Pain) 1,300 mg PO ONCE amlodipine 10 mg PO DAILY aspirin 81 mg PO DAILY Breo Ellipta 100-25 mcg/dose (fluticasone furoate-vilanterol) 1 inh inhalation DAILY NS chlorthalidone 25 mg PO DAILY doxazosin 4 mg PO DAILY losartan-hydrochlorothiazide 100-25 mg 1 tab PO DAILY olmesartan 40 mg PO DAILY HPI HPI dyspnea: Details: Chu is a pleasant 74 year old male, never smoker, with underlying COLBY, asthma, HTN, adenocarcinoma of prostate s/p prostatectomy 2005, and 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 He has been using Breo with moderate control, continues with dyspnea on exertion. Denies cough, wheezing, or chest tightness. He has a prescription for albuterol however device is not working properly and is in need of a new prescription. Prior sleep study 11/2024 revealed moderate COLBY with AHI 21 in moderate nocturnal hypoxemia, less than 88% for 16 minutes, lowest oxygen saturation 80 and average oxygen saturation 93%. He was started on CPAP therapy in APAP mode pressures 6- 20 cmH2O. He reports benefit from use with improvement in nonrestorative sleep as well as daytime fatigue and presents today to review compliance report. DME is [facility]. He denies any visits to urgent care or hospitalizations related to respiratory distress at the last visit patient with noted abnormal heartbeat sent for EKG which revealed PVCs and ultimately underwent cardiac evaluation. He had some cardiac medications adjusted due to resistant hypertension and recently had a Holter monitor to assess PVC burden however has not discuss results with Cardiology at this time. [facility] Social History Patient Tobacco Use Status: Never used Tobacco Review of Systems Const Denies chills, Denies excessive sweating, Denies fever(s), Denies headache(s) and Denies night sweats Eyes Denies dry eyes, Denies irritation and Denies itchy eyes ENT Reports Normal hearing present, Denies headache(s), Denies nasal congestion, Denies nasal discharge, Denies post nasal drip and Denies sore throat Card Denies chest pain, Denies chest pain at rest, Denies chest pain with activity, Denies claudication, Denies leg edema, Denies dyspnea, Reports dyspnea on exertion, Denies orthopnea and Denies paroxysmal nocturnal dyspnea Resp Denies chest congestion, Denies cough, Denies excessive phlegm production, Denies pain on inspiration, Denies pain with cough, Denies dyspnea, Reports dyspnea on exertion, Denies stridor and Denies wheezing Musc Denies myalgias Neuro Reports Normal hearing present and Denies headache(s) Endo Denies excessive sweating Mandeep/Lymph Denies lymphadenopathy Aller/Immun Denies itchy eyes, Denies seasonal rhinorrhea and Denies wheezing Physical Exam Vital Signs: Last Vital Signs Pulse 66 04/15/25 12:58 BP 144/74 H 04/15/25 12:58 Pulse Ox 97 04/15/25 12:58 Oxygen Delivery Method Room Air 04/15/25 12:58 BMI result Body Mass Index 40.3 Const General: cooperative, healthy appearing, comfortable, no acute distress, well developed and alert Nutritional Appearance: obese Orientation/consciousness: patient oriented x3 Limitations: no limitations HEENT Head: Yes normal to inspection, Yes normocephalic and Yes atraumatic Ears: hearing grossly normal bilaterally and external ears normal Eyes General: appearance normal, both eyes and all related structures Eyelids: Yes eyelids normal Sclerae: sclerae normal EOM: EOMs intact bilaterally Neck Neck: Yes normal visual inspection and Yes no lymphadenopathy Lymphatic: no lymphadenopathy noted Chest Chest palpation & inspection: normal inspection of the chest Resp Effort & Inspection: normal respiratory effort, able to speak in complete sentences, no audible wheezes, no cough, no stridor, not tachypneic, no tripod positioning and no use of accessory muscles Auscultation: clear to auscultation bilaterally Cardio Jugular venous distension: no JVD Rate: regular rate Rhythm: regular rhythm Skin Other: warm, dry General skin exam: no rashes or lesions noted Neuro General: patient oriented x3 Cranial nerves: Yes Normal hearing present Cognition (Neuro): normal cognition Gait exam (Neuro): Normal gait present Extrem General: Yes normal to inspection, Yes capillary refill normal, Yes no clubbing, cyanosis or edema and Yes no pedal edema Psych Appearance: grossly normal and well kempt Speech and movement: Normal speech and movement present and Clear speech present Affect: normal affect Attitude: cooperative Thought process: Normal thought process present Thought content: Normal thought content present Insight: Good insight present (Psych) Judgement: Good judgement present (Psych) Assessment & Plan Assessment & Plan (1) Asthma: Code(s): J45.909 - Unspecified asthma, uncomplicated Category: Medical (2) Pulmonary nodule: Code(s): R91.1 - Solitary pulmonary nodule Category: Medical (3) Moderate obstructive sleep apnea: Code(s): G47.33 - Obstructive sleep apnea (adult) (pediatric) Category: Medical (4) Nocturnal hypoxemia: Code(s): G47.34 - Idiopathic sleep related nonobstructive alveolar hypoventilation Category: Medical Plan Reviewed compliance report for last 30 days which revealed >4 hours of use 97% of the time, averaging 6.5 hours, with minimal leaking and average AHI 3. Patient has been benefitting from use and is motivated to continue. Will send for overnight oximetry to assess resolution of nocturnal hypoxemia with the use of CPAP therapy. Prior Chest CT 08/2024 which revealed 3mm pulmonary nodule of LLL, order placed to repeat in one year to assess stability, previously ordered. Continues to report dyspnea on exertion, will increase Breo to 200 mcg and reassess at next visit. May have underlying cardiac component contributing to dyspnea. Will also send levalbuterol in place of albuterol due to increased palpitations with albuterol as well as notable PVCs. He is aware to call if this is not covered by insurance. All questions were answered and patient is in agreement of plan. Will follow up in 8 weeks or sooner if needed. Orders: Orders Overnight Pulse Oximetry Today G47.34 - Idiopathic sleep related nonobstructive alveolar hypoventilation Medications: New fluticasone furoate-vilanterol 200-25 mcg/dose (Breo Ellipta) 1 inh inhalation DAILY 60 ea 2RF levalbuterol tartrate 45 mcg/actuation 1 puff inhalation Q4-6H PRN 15 grams 3RF shortness of breath I49.9 - Cardiac arrhythmia, unspecified, J45.909 - Unspecified asthma, uncomplicated Discontinued Breo Ellipta 100-25 mcg/dose (fluticasone furoate-vilanterol) Discontinued Reason: Patient Completed Course 1 inh inhalation DAILY 60 ea 6RF NS Coding Level of Care Code Est Pt Level 4 (99936) Complex EM visit Add On G2211 Diagnoses Asthma J45.909 Pulmonary nodule R91.1 Moderate obstructive sleep apnea G47.33 Nocturnal hypoxemia G47.34
--- OUTSIDE RECORDS SUMMARY | 2025-04-15 16:12 | XMS_ITS | Clinical Summary ---
Author Organization [address] [place] [address] [place] [id number] Phone Care Team Providers Care Senior Pastor Name Role Phone Bayron Fulton Primary Care Provider [phone] Social History Tobacco Use Types Packs/Day Years [...] Health Maintenance Due Date Last Done Comments Colorectal Cancer Screening: Colonoscopy 1950 DTaP,Tdap,and Td Vaccines (1 - Tdap) 1969 Pneumococcal Vaccine: 50+ Ye ars (1 of 1 - PCV) 2000 Zoster Vaccines (1 of 2) 2000 Depression Screening 07/02/2024 Abdominal Aortic Aneurysm (A AA) Screen 09/02/2024 Cholesterol Screening (Lipid Panel) 09/02/2024 Falls Risk Assessment 09/02/2024 Hepatitis C Screening 09/02/2024 Medicare Annual Wellness Visit 09/02/2024 Social Influencers of Health Screening 09/02/2024 COVID-19 Vaccine (1 - 2023-2 5 season) 2025 Influenza Vaccine (#1) 2025 RSV Immunization Adult [...] patient's age to complete this topic Insurance [facility] MEDICARE Care Teams Senior Pastor Relationship Specialty Start Date End Date Bayron Fulton PA PCP - General Physician Fitness Club Manager 09/02/24
--- OUTSIDE RECORDS SUMMARY | 2025-04-15 16:12 | XMS_ITS | Encounter Summary ---
Author Organization [facility] Address [address] [facility] [address] [place] [address] Phone Care Team Providers Care Tester [employer] Name Role Phone Erlin Monk MD Primary Care Provider [phone] Encounter Details Date Type Department Care Team (Late st Contact Info) Description 06/22/2023 Procedure Pass OR Admitting Dept - Virtual Department [address] [place] [address] Social History Tobacco Use Types Packs/Day Years [...] on filedocumented in this encounter Care Teams Tester [employer]icon[employer] Packages Relationship Specialty Start Date End Date Erlin Monk MD [address] [place] [address] [address] [place] [address] PCP - General Internal Medicine 04/17/23 documented as of this encounter Additional Source Comments The information contained in this document represents components of the legal health record. It is not the complete legal health record.[facility]
--- OUTSIDE RECORDS SUMMARY | 2025-04-15 16:12 | XMS_ITS | Encounter Summary ---
Author Organization [facility] Address [address] [facility] [address] [place] [address] Phone Care Team Providers Care Manager Store Name Role Phone Erlin Monk MD Primary Care Provider [phone] Encounter Details Date Type Department Care Team (Late st Contact Info) Description 08/03/2023 Procedure Pass OR Admitting Dept - Virtual Department [address] [place] [address] Social History Tobacco Use Types Packs/Day Years [...] on filedocumented in this encounter Care Teams Manager Store Relationship Specialty Start Date End Date Erlin Monk MD [address] [place] [address] [address] [place] [address] PCP - General Internal Medicine 04/17/23 documented as of this encounter Additional Source Comments The information contained in this document represents components of the legal health record. It is not the complete legal health record.[facility]
--- OUTSIDE RECORDS SUMMARY | 2025-04-15 16:12 | XMS_ITS | Clinical Summary ---
Author Organization [facility] Address [address] [place] [address] Phone Care Team Providers Care Dopeman Name Role Phone Erlin Monk MD Primary Care Provider [phone] Allergies No known active allergies Medications amLODIPine (NORVASC) 10 MG tablet 3 Active doxazosin (CARDURA) 4 MG tablet Take 1 tablet by mouth every morning. 3 Active losartan-hydroCHL OROthiazide (HYZAAR) 100-25 mg per tablet Take 1 tablet by mouth every morning. 3 Active aspirin 81 mg chewable tablet Take 81 mg by mouth daily. Active omega 0-xza-dvx-fish oil 1,000 mg (120 mg-180 mg) Cap [...] POTASSIUM LEVEL 1950 DEPRESSION SCREENING 1962 HEPATITIS C SCREENING 1968 COLOGUARD 1995 COLONOSCOPY 1995 COLORECTAL CANCER SCREENING 1995 FIT TEST 1995 FOBT 1995 SIGMOIDOSCOPY 1995 VIRTUAL COLONOSCOPY 1995 PNEUMOCOCCAL VACCINES (50+ years) (1 of 1 - PCV) 2000 INFLUENZA VACCINE (#1) 2025 , 03/29/2020 COVID-19 VACCINE (3 - 2024-2 6 season) 2025 10/04/2020, 09/13/2020 RSV VACCINE (1 - 1-dose [...] age to complete this topic MENINGOCOCCAL VACCINES (B) Aged Out N o longer eligible based on patient's age to complete this topic Medical Devices Not on file Insurance MEDICARE PART A & B [id number] [place] [address] MEDICARE SUPPLEMENT MEDICARE PART A & B [facility] MEDICARE SUPPLEMENT MEDICARE PART A & B [facility] MEDICARE SUPPLEMENT MEDICARE PART A & B [facility] MEDICARE [place] [address] [place] [phone] MEDICARE PART A & B [facility] MEDICARE SUPPLEMENT MEDICARE PART A & B [facility] MEDICARE SUPPLEMENT Care Teams Dopeman Relationship Specialty Start Date End Date Erlin Monk MD [address] [facility] [address] [address] PCP - General Internal Medicine 04/17/23 Additional Source Comments The information contained in this document represents components of the legal health record. It is not the complete legal health record.[facility]
== END 2025-04-15 13:35 | disposition home or self-care (01) ==
LOC: HO.HPSW 12:51
PROVIDERS: PCP Physician Assistant Medical; Visit Provider Nurse Practitioner Family
DX: J45.909 Unspecified asthma, uncomplicated (principal); R91.1 Solitary pulmonary nodule; G47.33 Obstructive sleep apnea (adult) (pediatric); G47.34 Idiopathic sleep related nonobstructive alveolar hypoventilation
CPT/HCPCS: 99214; G2211

== ENCOUNTER → 2025-04-15 12:50 | Outpatient (BNVA) | payer MEDICARE, SELFPAY | PROVIDERS: PCP Physician Assistant Medical; Visit Provider Nurse Practitioner Family | DX: J45.909 Unspecified asthma, uncomplicated (principal); R91.1 Solitary pulmonary nodule; G47.33 Obstructive sleep apnea (adult) (pediatric); G47.34 Idiopathic sleep related nonobstructive alveolar hypoventilation | CPT/HCPCS: 99212 ==

== ENCOUNTER 2025-06-30 14:47 | Outpatient (AMB) | payer MEDICARE, SELFPAY ==
[2025-06-30 14:51] VITALS: BP 142/76; PULSE 82; O2SAT 97; BMI 40.6
--- NOTE | 2025-06-30 14:51 | MHC.OFFVIS ---
Vital Signs 06/30/25 14:51 Height 5 ft 9.5 in Weight 279 lb 2 oz BMI 40.6 BP 142/76 H Blood Pressure Location Rt brachial Position Sitting Pulse 82 Pulse Source Pulse Oximeter Pulse Oximetry (%) 97 Oxygen Delivery Method Room Air Intake Visit Reasons: dyspnea Allergies No Known Allergies Allergy (Verified 06/30/25 14:54) HPI HPI dyspnea: Details: HPI Comments Details: Chu is a pleasant 75 year old male, never smoker, with underlying COLBY, asthma, HTN, adenocarcinoma of prostate s/p prostatectomy 2005, and 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 Prior sleep study 11/2024 revealed moderate COLBY with AHI 21 in moderate nocturnal hypoxemia, less than 88% for 16 minutes, lowest oxygen saturation 80 and average oxygen saturation 93%. He was started on CPAP therapy in APAP mode pressures 6-20 cmH2O. He reports benefit from use with improvement in nonrestorative sleep as well as daytime fatigue and presents today to review compliance report. [facility]ME is [facility]. Compliance review of the last 30 days of data shows an average of 2.1 events per hour. The CPAP pressure ranges from 6 to 20 with an average of 16, and there is minimal mask leaking. An oxygen test showed his oxygen was low for approximately two minutes. Regarding his asthma, he is on Breo 200 mcg and reports improvement in shortness of breath with very little coughing or wheezing. He uses an albuterol inhaler for breakthrough symptoms and has had no recent urgent care or hospital visits for his breathing. For preventative care, he has received his flu shot and is taking precautions to avoid illness, such as staying away from crowds and sick family members. He has a CT scan scheduled for August. In terms of cardiac history, the patient was recently started on a new 25 mg medication for premature ventricular contractions by his general manager oracle data cloud, Dr. Meléndez. Pulmonology History - History of asthma, currently managed with Breo 200 mcg daily and albuterol as needed. - Reports improvement in dyspnea with minimal cough or wheezing. - No recent hospitalizations or urgent care visits for respiratory issues. - History of obstructive sleep apnea, managed with CPAP therapy. - Recent CPAP data shows good control with an AHI of 2.1. Results - Tests and Diagnostics: - CPAP Data (last 30 days): AHI of 2.1 events/hour, average pressure of 16 on a range of 6-20, and minimal mask leak. - Overnight Oximetry (with CPAP): Low oxygen saturation for a total of two minutes. [facility] Social History Patient Tobacco Use Status: Never used Tobacco Review of Systems Narrative Const Denies chills, Denies excessive sweating, Denies fever(s), Denies headache(s) and Denies night sweats Eyes Denies dry eyes, Denies irritation and Denies itchy eyes ENT Reports Normal hearing present, Denies headache(s), Denies nasal congestion, Denies nasal discharge, Denies post nasal drip and Denies sore throat Card Denies chest pain, Denies chest pain at rest, Denies chest pain with activity, Denies claudication, Denies leg edema, Denies dyspnea, Reports dyspnea on exertion, Denies orthopnea and Denies paroxysmal nocturnal dyspnea Resp Denies chest congestion, Denies cough, Denies excessive phlegm production, Denies pain on inspiration, Denies pain with cough, Denies dyspnea, Reports dyspnea on exertion, Denies stridor and Denies wheezing Musc Denies myalgias Neuro Reports Normal hearing present and Denies headache(s) Endo Denies excessive sweating Mandeep/Lymph Denies lymphadenopathy Aller/Immun Denies itchy eyes, Denies seasonal rhinorrhea and Denies wheezing Physical Exam Exam Exam: Vital Signs: Last Vital Signs Pulse 82 06/30/25 14:51 BP 142/76 H 06/30/25 14:51 Pulse Ox 97 06/30/25 14:51 Oxygen Delivery Method Room Air 06/30/25 14:51 BMI result Body Mass Index 40.6 Const General: cooperative, healthy appearing, comfortable, no acute distress, well developed and alert Nutritional Appearance: obese Orientation/consciousness: patient oriented x3 Limitations: no limitations HEENT Head: Yes normal to inspection, Yes normocephalic and Yes atraumatic Ears: hearing grossly normal bilaterally and external ears normal Eyes General: appearance normal, both eyes and all related structures Eyelids: Yes eyelids normal Sclerae: sclerae normal EOM: EOMs intact bilaterally Neck Neck: Yes normal visual inspection and Yes no lymphadenopathy Lymphatic: no lymphadenopathy noted Chest Chest palpation & inspection: normal inspection of the chest Resp Effort & Inspection: normal respiratory effort, able to speak in complete sentences, no audible wheezes, no cough, no stridor, not tachypneic, no tripod positioning and no use of accessory muscles Auscultation: clear to auscultation bilaterally Cardio Jugular venous distension: no JVD Rate: regular rate Rhythm: abnormal rhythm Skin Other: warm, dry General skin exam: no rashes or lesions noted Neuro General: patient oriented x3 Cranial nerves: Yes Normal hearing present Cognition (Neuro): normal cognition Gait exam (Neuro): Normal gait present Extrem General: Yes normal to inspection, Yes capillary refill normal, Yes no clubbing, cyanosis or edema and Yes no pedal edema Psych Appearance: grossly normal and well kempt Speech and movement: Normal speech and movement present and Clear speech present Affect: normal affect Attitude: cooperative Thought process: Normal thought process present Thought content: Normal thought content present Insight: Good insight present (Psych) Judgement: Good judgement present (Psych) Assessment & Plan Assessment & Plan (1) Asthma: Code(s): J45.909 - Unspecified asthma, uncomplicated Category: Medical (2) Pulmonary nodule: Code(s): R91.1 - Solitary pulmonary nodule Category: Medical (3) Moderate obstructive sleep apnea: Code(s): G47.33 - Obstructive sleep apnea (adult) (pediatric) Category: Medical Plan Reviewed the patient's asthma and obstructive sleep apnea management. His asthma symptoms are well-controlled on Breo 200 mcg, but he reports that his insurance no longer covers this medication. Explained that we would prescribe Advair as an alternative, noting that it is dosed twice a day. We discussed the frustrating but necessary process of [id number] to find an affordable, covered inhaler and instructed him to communicate with the pharmacy and our office to facilitate this. Emphasized that continued use of a controller inhaler is crucial to prevent exacerbations and the need for oral steroids. Reviewed his recent CPAP data, informed him shows excellent control of his sleep apnea with an AHI of 2.1, and recommended no changes to his current therapy. Provided guidance on avoiding respiratory infections during the current season and gave clear instructions on when to contact our office for worsening symptoms. We agreed to a follow-up visit in about three months. All questions were answered and patient is in agreement of plan. Patient Instructions - Your breathing is stable, but we know your insurance is no longer covering your Breo inhaler. - A new prescription for Advair has been sent to your pharmacy. This is taken two times a day. - Before you pick it up, please call the pharmacy to ask how much it costs. If it is too expensive, call our office or send us a portal message so we can prescribe a different option. - Continue using your CPAP machine every night. Your data shows it is working very well to treat your sleep apnea. - Continue taking the new heart medication from your general manager oracle data cloud. - To avoid getting sick, wash your hands often, stay away from crowds or people who are sick, and consider wearing a mask in crowded indoor places. - Call our office if your breathing gets worse, you are wheezing constantly, your rescue inhaler isn't helping, or you start coughing up yellow, green, or brown mucus. - Plan to schedule a follow-up appointment in about 3 months. Please call sooner if you have any problems. Patient was informed and verbally consented to the use of an ambient scribe for clinic note documentation during this visit. Medications: New fluticasone propion-salmeterol 230-21 mcg/actuation (Advair HFA) 2 puffs inhalation Q12H 12 grams 3RF Coding Level of Care Code Est Pt Level 4 (74683) Diagnoses Asthma J45.909 Pulmonary nodule R91.1 Moderate obstructive sleep apnea G47.33
--- OUTSIDE RECORDS SUMMARY | 2025-06-30 18:24 | XMS_ITS | Encounter Summary ---
Author Organization [facility] Address [address] [employer] [address] [place] [address] Phone Care Team Providers Care Instructional Technology Director Name Role Phone Erlin Monk MD Primary Care Provider [phone] Encounter Details Date Type Department Care Team (Late st Contact Info) Description 08/03/2023 Procedure Pass OR Admitting Dept - Virtual Department [address] [place] [address] Social History Tobacco Use Types Packs/Day Years [...] on filedocumented in this encounter Care Teams Instructional Technology Director Relationship Specialty Start Date End Date Erlin Monk MD [address] [place] [address] [address] [place] [address] PCP - General Internal Medicine 04/17/23 documented as of this encounter Additional Source Comments The information contained in this document represents components of the legal health record. It is not the complete legal health record.[facility]
--- OUTSIDE RECORDS SUMMARY | 2025-06-30 18:24 | XMS_ITS | Clinical Summary ---
Author Organization [address] [place] [address] [place] [phone] Phone Care Team Providers Care Identification Clerk Name Role Phone Bayron Fulton Primary Care Provider [phone] Social History Tobacco Use Types Packs/Day Years [...] Health Screening 09/02/2024 COVID-19 Vaccine (1 - 2024-2 6 season) 2025 Influenza Vaccine (#1) 2025 RSV [...] patient's age to complete this topic Insurance [facility] MEDICARE Care Teams Identification Clerk Relationship Specialty Start Date End Date Bayron Fulton PA PCP - General Physician Director [place] 09/02/24
--- OUTSIDE RECORDS SUMMARY | 2025-06-30 18:24 | XMS_ITS | Encounter Summary ---
Author Organization [facility] Address [address] [employer] [facility] [address] [place] [address] Phone Care Team Providers Care Port Patrol Officer Name Role Phone Erlin Monk MD Primary Care Provider [phone] Encounter Details Date Type Department Care Team (Late st Contact Info) Description 06/22/2023 Procedure Pass OR Admitting Dept - Virtual Department [address] [place] [address] Social History Tobacco Use Types Packs/Day Years [...] on filedocumented in this encounter Care Teams Port Patrol Officer Relationship Specialty Start Date End Date Erlin Monk MD [address] [place] [address] [address] [place] [address] PCP - General Internal Medicine 04/17/23 documented as of this encounter Additional Source Comments The information contained in this document represents components of the legal health record. It is not the complete legal health record.[facility]
--- OUTSIDE RECORDS SUMMARY | 2025-06-30 18:24 | XMS_ITS | Clinical Summary ---
Author Organization [facility] Address [address] [place] [phone] Phone Care Team Providers Care Integrity Manager Name Role Phone Erlin Monk MD Primary Care Provider [phone] Allergies No known active allergies Medications amLODIPine (NORVASC) 10 MG tablet 3 Active doxazosin (CARDURA) 4 MG tablet Take 1 tablet by mouth every morning. 3 Active losartan-hydroCHL OROthiazide (HYZAAR) 100-25 mg per tablet Take 1 tablet by mouth every morning. 3 Active aspirin 81 mg chewable tablet Take 81 mg by mouth daily. Active omega 0-krq-icc-fish oil 1,000 mg (120 mg-180 mg) Cap [...] file Insurance MEDICARE PART A & B [id number] [place] [address] MEDICARE SUPPLEMENT MEDICARE PART A & B [facility] MEDICARE SUPPLEMENT MEDICARE PART A & B [facility] MEDICARE SUPPLEMENT MEDICARE PART A & B [facility] MEDICARE SUPPLEMENT [place] [id number] MEDICARE PART A & B [facility] MEDICARE SUPPLEMENT MEDICARE PART A & B [facility] MEDICARE SUPPLEMENT Care Teams Integrity Manager Relationship Specialty Start Date End Date Erlin Monk MD [facility] [address] [address] PCP - General Internal Medicine 04/17/23 Additional Source Comments The information contained in this document represents components of the legal health record. It is not the complete legal health record.[facility]
== END 2025-06-30 15:23 | disposition home or self-care (01) ==
LOC: HO.HPSW 14:48
PROVIDERS: PCP Physician Assistant Medical; Visit Provider Nurse Practitioner Family
DX: J45.909 Unspecified asthma, uncomplicated (principal); R91.1 Solitary pulmonary nodule; G47.33 Obstructive sleep apnea (adult) (pediatric)
CPT/HCPCS: 99214

== ENCOUNTER → 2025-06-30 14:47 | Outpatient (BNVA) | payer MEDICARE, SELFPAY | PROVIDERS: PCP Physician Assistant Medical; Visit Provider Nurse Practitioner Family | DX: J45.909 Unspecified asthma, uncomplicated (principal); R91.1 Solitary pulmonary nodule; G47.33 Obstructive sleep apnea (adult) (pediatric); G47.34 Idiopathic sleep related nonobstructive alveolar hypoventilation | CPT/HCPCS: 99212 ==